=== PATIENT | male | born 1955 | race Caucasian/White ===

== ENCOUNTER → 2019-11-06 | Outpatient (CLI) | payer OTHER ==
[~2019-11-06] MED LIST: ASPIRIN325 PO; CRESTOR20 MG PO; DEXILANT60 MG PO; EFFIENT10 MG PO; LASIX 20 MG TAB20 MG PO; SYNTHROID50 MCG PO; UROXATRAL10 MG PO
== END ==
LOC: M.CT 08:49
DX: J43.2 Centrilobular emphysema (principal); I25.10 Atherosclerotic heart disease of native coronary artery without angina pectoris; M41.84 Other forms of scoliosis, thoracic region; K80.20 Calculus of gallbladder without cholecystitis without obstruction; Z77.090 Contact with and (suspected) exposure to asbestos; Z87.891 Personal history of nicotine dependence